=== PATIENT | male | born 1960 | race Caucasian/White ===

== ENCOUNTER 2018-06-21 14:18 | Emergency (ER) | payer MEDICAID, SELFPAY ==
[2018-06-21 14:53] VITALS: BP 133/77; PULSE 80; RESP 16; TEMP 36.5; O2SAT 98
--- NOTE | 2018-06-21 15:02 | PC.NURSE ---
pt speaking about biblical versus. 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
--- NOTE | 2018-06-21 15:43 | ED.PSYCH ---
HPI - Psych General Chief Complaint: Psychiatric Symptoms Stated Complaint: seeing spots Time Seen by Provider: 06/21/18 14:49 Source: patient Mode of arrival: ambulatory Limitations: no limitations History of Present Illness HPI Narrative: Patient is a 57-year-old male brought in by concerned friend after being found in car passed out. She was unable to arouse him initially but he became more awake. A the friend has noticed over the past 2 weeks he has become much more talkative. Unclear if patient has a known diagnosis of bipolar. He is not taking any medications. He says in 2012 he was hospitalized in [place] a by the. He has very bad memories of this. He remembers what happened. He says that he does sleep he thinks maybe he fell asleep in the car he denies any drugs or alcohol. No suicidal or homicidal ideations. He continues to work regularly he showers and is well dressed. MD complaint: altered mental status Review of Systems Review of Systems ROS Unobtainable: All systems reviewed & are unremarkable except as noted in HPI and below Constitutional Denies chills, Denies fever(s), Denies lethargy and Denies weakness Cardiovascular Denies chest pain, Denies syncope, Denies irregular heart rhythm, Denies lightheadedness, Denies palpitations, Denies dyspnea, Denies dyspnea on exertion and Denies orthopnea Respiratory Denies cough, Denies dyspnea, Denies dyspnea on exertion and Denies wheezing Gastrointestinal Gastrointestinal: Denies abdominal pain, Denies change in bowel habits, Denies diarrhea, Denies nausea and Denies vomiting Musculoskeletal Denies back pain, Denies muscle weakness, Denies numbness and Denies tingling Integumentary/Breasts Denies pruritus, Denies erythema, Denies rash and Denies wounds Neurologic Reports behavioral changes, Denies confusion, Denies syncope, Denies numbness, Denies tingling and Denies weakness Psychiatric Denies anxiety, Reports behavioral changes, Denies confusion, Denies depression, Denies auditory hallucinations, Denies hopelessness, Reports mood swings, Denies paranoia and Denies tactile hallucinations Endocrine Denies palpitations Allergic/Immunologic Denies wheezing [facility] Medical History Patient denies medical problems (Acute) Social History Smoking Status: Never smoker Exam Initial Vital Signs Initial Vital Signs: Vital Signs Temperature 97.7 F 06/21/18 14:53 Pulse Rate 80 06/21/18 14:53 Respiratory Rate 16 06/21/18 14:53 Blood Pressure 133/77 06/21/18 14:53 Pulse Oximetry 98 06/21/18 14:53 GENERAL: Well-appearing male standing in room comfortably resting against a counter HEENT: Head atraumatic,EOMI, pupils reactive, face symmetric CARDIOVASCULAR: Regular rate and rhythm without murmurs, rubs or gallops. RESPIRATORY: Breath sounds equal bilaterally, no wheezes rales or rhonchi. ABDOMEN: Soft, nontender. Normoactive bowel sounds all 4 quadrants. No guarding or rebound. EXTREMITIES: Normal range of motion, no clubbing or edema. Neurovascularly intact NEUROLOGICAL: Alert and oriented x4.Normal gait and speech. Cranial nerves II through XII grossly intact. SKIN: Warm, dry, no laceration, no petechiae, no rashes or lesions. Psych Appearance: grossly normal and well kempt Mental Status: mental status grossly normal Speech and Movement: pressured speech Mood: congruent mood and not anxious Affect: normal affect Attitude: cooperative Thought Process: normal and no flight of ideas Thought Content: normal Course Orders Ordered: ED Orders 06/21/18 15:43 EKG-12 Lead Stat 06/21/18 16:18 Basic Metabolic Panel Stat Complete Blood Count AUTO DIFF Stat Vital Signs - 8 hr 06/21/18 14:53 Temperature 97.7 F Pulse Rate 80 Respiratory Rate 16 Blood Pressure 133/77 Pulse Oximetry 98 [facility] - Psych Lab Data Attestation: I reviewed the patient's lab results. Result diagrams: 06/21/18 16:18 06/21/18 16:18 Lab Results 06/21/18 06/21/18 06/21/18 Range/Units 16:18 16:18 Unknown WBC 6.8 (4.5-11.0) X10^3/uL RBC 4.80 (4.5-5.9) X10^6/uL Hgb 14.8 (13.5-17.5) g/dL Hct 42.5 (41-53) % MCV 88.5 (80-100) fL MCH 30.8 (26-34) PG MCHC 34.7 (30-36) % RDW 13.5 (11.6-14.8) % Plt Count 202 (150-400) X10^3/uL Neut % (Auto) 70.9 (50-75) % Lymph % (Auto) 20.2 L (25-40) % [place] % (Auto) 7.4 (3-14) % Eos % (Auto) 0.9 L (2-4) % Baso % (Auto) 0.6 (0-2) % Neut # (Auto) 4800 (4347-9781) /uL Lymph # (Auto) 1400 (0584-4805) /uL [place] # (Auto) 500 (0-900) /uL Eos # (Auto) 100 (0-450) /uL Baso # (Auto) 0 (0-100) /uL Sodium 139 (137-145) mmol/L Potassium 4.2 (3.4-5.1) mmol/L Chloride 106 (98-107) mmol/L Carbon Dioxide 26 (22-32) mmol/L BUN 27 H (9-20) mg/dL Creatinine 0.90 (0.66-1.25) mg/dL Estimated GFR > 60.0 (>60) mL/min BUN/Creatinine Ratio 30.0 H (6-22) Glucose 109 H (70-100) mg/dL Calcium 8.9 (8.4-10.2) mg/dL Urine Opiates Screen Negative (Negative) Ur Oxycodone Screen Negative (Negative) Urine Methadone Screen Negative (Negative) Ur Barbiturates Screen Negative (Negative) U Tricyclic Antidepress Negative (Negative) Ur Phencyclidine Scrn Negative (Negative) Ur Amphetamines Screen Negative (Negative) U Methamphetamines Scrn Negative (Negative) Ur MDMA Scrn (Ecstasy) Negative (Negative) U Benzodiazepines Scrn Negative (Negative) Urine Cocaine Screen Negative (Negative) U Marijuana (THC) Screen Negative (Negative) Ethyl Alcohol < 10 mg/dL Urine Dip Bedside Urine Glucose Negative Bedside Urine Bilirubin - Negative Bedside Urine Ketone - Negative Urine Specific [place] 1.015 Bedside Urine Occult Blood - Negative Bedside Urine pH 8.0 Bedside Urine Protein - Negative Bedside Urine Urobilinogen - Negative Bedside Urine Nitrite - Negative Bedside Urine Leukocytes - Negative Esterase ECG Data Attestation: I personally reviewed and interpreted this ECG as follows: Prior ECG tracings: not available for review Interpretation: Normal sinus rhythm rate [address] changes no T-wave inversion MO interval 159 QRS 90 QTC 391 MDM Narrative Medical decision making narrative: Patient does have pressured speech but not flight of ideas he seems to have a normal thought process. This time he does not meet involuntary criteria. I have called [facility] who set up an urgent appointment for next week. They will call him tomorrow at 6:00 p.m.. Patient request this time he will be sure that he has cell phone service, which [place] a [place]. Discharge Plan Departure Patient Disposition: Home Clinical Impression: Near syncope Discharge Date/Time: 06/21/18 17:00 Interventions: ED Discharge Assessment Last Done: 06/21/18 17:00 Instructions: DI for Syncope in Adults (Fainting), Bipolar Disorder Activity Restrictions/Additional Instructions: *You have been diagnosed with fainting episode, *What to do: [facility] WILL CALL TOMORROW AT 6:00 P.M. PLEASE BE SURE YOU ARE IN CELL PHONE SERVICE AREA TO RECEIVE CALL *Continue to take medications as directed *Follow up with your primary care provider in 2-3 days, [facility] will speak to you about setting up appointment for next week *Return to ER if you should have suicidal thoughts, homicidal thoughts, increased racing thoughts or any new, worsening or concerning symptoms Referrals: [facility] [Outside] [facility] [Outside]
[2018-06-21 16:25] LABS: Add Manual Diff / Slide Review NO; Basophils Absolute Auto 0 /uL (0-100); Basophils Percent Auto 0.6 % (0-2); Eosinophils Absolute Auto 100 /uL (0-450); Eosinophils Percent Auto 0.9 % (2-4); Hematocrit 42.5 % (41-53); Hemoglobin 14.8 g/dL (13.5-17.5); Lymphocytes Absolute Auto 1400 /uL (1100-4500); Lymphocytes Percent Auto 20.2 % (25-40); Mean Corpuscular HGB Conc 34.7 % (30-36); Mean Corpuscular Hemoglobin 30.8 PG (26-34); Mean Corpuscular Volume 88.5 fL (80-100); Monocytes Absolute Auto 500 /uL (0-900); Monocytes Percent Auto 7.4 % (3-14); Neutrophils Absolute Auto 4800 /uL (1500-7000); Neutrophils Percent Auto 70.9 % (50-75); Platelet Count 202 X10^3/uL (150-400); Red Cell Distribution Width 13.5 % (11.6-14.8); White Blood Cell Count 6.8 X10^3/uL (4.5-11.0)
[2018-06-21 16:38] LABS: Blood Urea Nitrogen 27 mg/dL (9-20); Calcium 8.9 mg/dL (8.4-10.2); Carbon Dioxide 26 mmol/L (22-32); Chloride 106 mmol/L (98-107); Estimated Glomerular Filt Rate > 60.0 mL/min (>60); Glucose 109 mg/dL (70-100); HEMOLYSIS < 15 (0-50); Potassium 4.2 mmol/L (3.4-5.1); Sodium 139 mmol/L (137-145)
--- NOTE | 2018-06-21 16:45 | ED_ITS ---
HPI - Psych General Chief Complaint: Psychiatric Symptoms Stated Complaint: seeing spots Time Seen by Provider: 06/21/18 14:49 Source: patient Mode of arrival: ambulatory Limitations: no limitations History of Present Illness HPI Narrative: Patient is a 57-year-old male brought in by concerned friend after being found in car passed out. She was unable to arouse him initially but he became more awake. A the friend has noticed over the past 2 weeks he has become much more talkative. Unclear if patient has a known diagnosis of bipolar. He is not taking any medications. He says in 2012 he was hospitalized in [place] a by the. He has very bad memories of this. He remembers what happened. He says that he does sleep he thinks maybe he fell asleep in the car he denies any drugs or alcohol. No suicidal or homicidal ideations. He continues to work regularly he showers and is well dressed. MD complaint: altered mental status Review of Systems Review of Systems ROS Unobtainable: All systems reviewed & are unremarkable except as noted in HPI and below Constitutional Denies chills, Denies fever(s), Denies lethargy and Denies weakness Cardiovascular Denies chest pain, Denies syncope, Denies irregular heart rhythm, Denies lightheadedness, Denies palpitations, Denies dyspnea, Denies dyspnea on exertion and Denies orthopnea Respiratory Denies cough, Denies dyspnea, Denies dyspnea on exertion and Denies wheezing Gastrointestinal Gastrointestinal: Denies abdominal pain, Denies change in bowel habits, Denies diarrhea, Denies nausea and Denies vomiting Musculoskeletal Denies back pain, Denies muscle weakness, Denies numbness and Denies tingling Integumentary/Breasts Denies pruritus, Denies erythema, Denies rash and Denies wounds Neurologic Reports behavioral changes, Denies confusion, Denies syncope, Denies numbness, Denies tingling and Denies weakness Psychiatric Denies anxiety, Reports behavioral changes, Denies confusion, Denies depression , Denies auditory hallucinations, Denies hopelessness, Reports mood swings, Denies paranoia and Denies tactile hallucinations Endocrine Denies palpitations Allergic/Immunologic Denies wheezing [facility] Medical History Patient denies medical problems (Acute) Social History Smoking Status: Never smoker Exam Initial Vital Signs Initial Vital Signs: Vital Signs Temperature 97.7 F 06/21/18 14:53 Pulse Rate 80 06/21/18 14:53 Respiratory Rate 16 06/21/18 14:53 Blood Pressure 133/77 06/21/18 14:53 Pulse Oximetry 98 06/21/18 14:53 GENERAL: Well-appearing male standing in room comfortably resting against a counter HEENT: Head atraumatic,EOMI, pupils reactive, face symmetric CARDIOVASCULAR: Regular rate and rhythm without murmurs, rubs or gallops. RESPIRATORY: Breath sounds equal bilaterally, no wheezes rales or rhonchi. ABDOMEN: Soft, nontender. Normoactive bowel sounds all 4 quadrants. No guarding or rebound. EXTREMITIES: Normal range of motion, no clubbing or edema. Neurovascularly intact NEUROLOGICAL: Alert and oriented x4.Normal gait and speech. Cranial nerves II through XII grossly intact. SKIN: Warm, dry, no laceration, no petechiae, no rashes or lesions. Psych Appearance: grossly normal and well kempt Mental Status: mental status grossly normal Speech and Movement: pressured speech Mood: congruent mood and not anxious Affect: normal affect Attitude: cooperative Thought Process: normal and no flight of ideas Thought Content: normal Course Orders Ordered: ED Orders 06/21/18 15:43 EKG-12 Lead Stat 06/21/18 16:18 Basic Metabolic Panel Stat Complete Blood Count AUTO DIFF Stat Vital Signs - 8 hr 06/21/18 14:53 Temperature 97.7 F Pulse Rate 80 Respiratory Rate 16 Blood Pressure 133/77 Pulse Oximetry 98 [facility] - Psych Lab Data Attestation: I reviewed the patient's lab results. Result diagrams: 06/21/18 16:18 06/21/18 16:18 Lab Results 06/21/18 06/21/18 06/21/18 Range/Units 16:18 16:18 Unknown WBC 6.8 (4.5-11.0) X10^3/uL RBC 4.80 (4.5-5.9) X10^6/uL Hgb 14.8 (13.5-17.5) g/dL Hct 42.5 (41-53) % MCV 88.5 (80-100) fL MCH 30.8 (26-34) PG MCHC 34.7 (30-36) % RDW 13.5 (11.6-14.8) % Plt Count 202 (150-400) X10^3/uL Neut % (Auto) 70.9 (50-75) % Lymph % (Auto) 20.2 L (25-40) % [place] % (Auto) 7.4 (3-14) % Eos % (Auto) 0.9 L (2-4) % Baso % (Auto) 0.6 (0-2) % Neut # (Auto) 4800 (3982-2037) /uL Lymph # (Auto) 1400 (9706-0111) /uL [place] # (Auto) 500 (0-900) /uL Eos # (Auto) 100 (0-450) /uL Baso # (Auto) 0 (0-100) /uL Sodium 139 (137-145) mmol/L Potassium 4.2 (3.4-5.1) mmol/L Chloride 106 (98-107) mmol/L Carbon Dioxide 26 (22-32) mmol/L BUN 27 H (9-20) mg/dL Creatinine 0.90 (0.66-1.25) mg/dL Estimated GFR > 60.0 (>60) mL/min BUN/Creatinine Ratio 30.0 H (6-22) Glucose 109 H (70-100) mg/dL Calcium 8.9 (8.4-10.2) mg/dL Urine Opiates Screen Negative (Negative) Ur Oxycodone Screen Negative (Negative) Urine Methadone Screen Negative (Negative) Ur Barbiturates Screen Negative (Negative) U Tricyclic Antidepress Negative (Negative) Ur Phencyclidine Scrn Negative (Negative) Ur Amphetamines Screen Negative (Negative) U Methamphetamines Scrn Negative (Negative) Ur MDMA Scrn (Ecstasy) Negative (Negative) U Benzodiazepines Scrn Negative (Negative) Urine Cocaine Screen Negative (Negative) U Marijuana (THC) Screen Negative (Negative) Ethyl Alcohol < 10 mg/dL Urine Dip Bedside Urine Glucose Negative Bedside Urine Bilirubin - Negative Bedside Urine Ketone - Negative Urine Specific [place] 1.015 Bedside Urine Occult Blood - Negative Bedside Urine pH 8.0 Bedside Urine Protein - Negative Bedside Urine Urobilinogen - Negative Bedside Urine Nitrite - Negative Bedside Urine Leukocytes - Negative Esterase ECG Data Attestation: I personally reviewed and interpreted this ECG as follows: Prior ECG tracings: not available for review Interpretation: Normal sinus rhythm rate [address] changes no T-wave inversion OR interval 159 QRS 90 QTC 391 MDM Narrative Medical decision making narrative: Patient does have pressured speech but not flight of ideas he seems to have a normal thought process. This time he does not meet involuntary criteria. I have called [facility] who set up an urgent appointment for next week. They will call him tomorrow at 6:00 p.m.. Patient request this time he will be sure that he has cell phone service, which is sometimes difficult to find a [place]. Discharge Plan Departure Patient Disposition: Home Clinical Impression: Near syncope Discharge Date/Time: 06/21/18 17:00 Interventions: ED Discharge Assessment Last Done: 06/21/18 17:00 Instructions: DI for Syncope in Adults (Fainting), Bipolar Disorder Activity Restrictions/Additional Instructions: *You have been diagnosed with fainting episode, *What to do: [facility] WILL CALL TOMORROW AT 6:00 P.M. PLEASE BE SURE YOU ARE IN CELL PHONE SERVICE AREA TO RECEIVE CALL *Continue to take medications as directed *Follow up with your primary care provider in 2-3 days, [facility] will speak to you about setting up appointment for next week *Return to ER if you should have suicidal thoughts, homicidal thoughts, increased racing thoughts or any new, worsening or concerning symptoms Referrals: [facility] [place] [Outside] [facility] [Outside]
[2018-06-21 16:54] VITALS: BP 133/81; PULSE 73; RESP 19; O2SAT 100
[2018-06-21 17:06] LABS: Ethanol (ETOH) < 10 mg/dL
[2018-06-21 17:44] LABS: Urine Amphetamines Negative (Negative); Urine Barbiturates Negative (Negative); Urine Benzodiazepines Negative (Negative); Urine Cocaine Negative (Negative); Urine MDMA Negative (Negative); Urine Methadone Negative (Negative); Urine Methamphetamines Negative (Negative); Urine Morphine/Opi cutoff 2000 Negative (Negative); Urine Oxycodone Negative (Negative); Urine Phencyclidine Negative (Negative); Urine THC Negative (Negative); Urine Tricyclic Antidepressant Negative (Negative)
== END 2018-06-21 17:00 | disposition home or self-care (01) ==
PROVIDERS: Emergency Provider Emergency Medicine
DX: R55 Syncope and collapse (principal)
CPT/HCPCS: 80048; 80305; 80320; 81003; 85025; 93005; 99282; 99283

== ENCOUNTER 2018-07-03 18:08 | Emergency (ER) | payer MEDICAID, SELFPAY ==
[2018-07-03 18:17] VITALS: BP 145/85; PULSE 95; RESP 20; TEMP 36.9; O2SAT 99; BMI 24.7
--- NOTE | 2018-07-03 20:01 | ED_ITS ---
HPI - Extremity Injury (Lower) General Chief Complaint: Extremity Injury, Lower Stated Complaint: pressure in legs, pressure in head, whoozy Time Seen by Provider: 07/03/18 20:00 Source: patient Mode of arrival: ambulatory Limitations: no limitations History of Present Illness HPI Narrative: The patient arrives with complaints of lower extremity edema. He has tightness in the lower extremities up to his knees. Apparently he has had edema in his lower extremities for years, but worse now. He has no obvious associated chest pain, dyspnea or orthopnea. He has no obvious cardiac history. He has no recent illness with fever or chills. History taking was difficult. When asked about chest pain, he tell me he had a broken heart for 20 years ago. When asked about difficulty breathing, he previously had difficulty breathing but his daughter consult him out of the sensation. Regarding the lower extremity edema he treats with verbal topical solutions, as well as herbal intake. He is on no prescribed medications, and has stated repeatedly he wants none. He is reliant only on herbal medicinal compounds. Interestingly he only uses 2 compounds, for anything. He apparently had a recent pneumonia that he had cured with the same compounds. Conversation with the patient was often tangential, he repeatedly demonstrated flight of ideas. Other than the leg edema, he is in no apparent distress. Related Data Allergies Allergy/AdvReac Type Severity Reaction Status Date / Time No Known Drug Allergies Allergy Verified 07/03/18 18:20 Review of Systems Review of Systems ROS Unobtainable: All systems reviewed & are unremarkable except as noted in HPI and below Constitutional Denies chills, Denies fever(s), Denies lethargy and Denies weakness Cardiovascular Denies chest pain, Denies irregular heart rhythm, Denies lightheadedness, Denies palpitations, Denies dyspnea, Denies dyspnea on exertion and Denies orthopnea Respiratory Denies cough, Denies dyspnea, Denies dyspnea on exertion and Denies wheezing Gastrointestinal Gastrointestinal: Denies abdominal pain, Denies change in bowel habits, Denies diarrhea, Denies nausea and Denies vomiting Musculoskeletal Denies back pain, Denies muscle weakness, Denies numbness, Denies tingling and Reports other Integumentary/Breasts Denies pruritus, Reports erythema (Mild erythema to both lower extremities associated with stasis dermatitis and lower extremities.), Denies rash and Denies wounds Neurologic Denies confusion, Denies numbness, Denies tingling and Denies weakness Psychiatric Denies anxiety, Denies confusion, Denies depression, Denies paranoia, Denies hallucinations, Denies homicidal ideation, Denies suicidal ideation and Reports other (He is oriented to person and place. He demonstrates flight of ideas. He openly admits that he has bipolar disorder. He is not sleeping well.) Endocrine Denies palpitations Hematologic/Lymphatic Denies easy bruising and Denies lymphadenopathy Allergic/Immunologic Denies wheezing PFSH Medical History Bipolar 1 disorder with moderate jeffrey (Acute) Edema (Acute) No chronic diseases present (Acute) Patient denies medical problems (Acute) Social History Smoking Status: Never smoker Exam Initial Vital Signs Initial Vital Signs: Vital Signs Temperature 98.5 F 07/03/18 18:17 Pulse Rate 95 H 07/03/18 18:17 Respiratory Rate 20 07/03/18 18:17 Blood Pressure 145/85 H 07/03/18 18:17 Pulse Oximetry 99 07/03/18 18:17 Const General: cooperative and well developed Nutritional Appearance: well nourished Orientation: alert, awake, oriented x3 and not confused [facility] Head: normocephalic and atraumatic Nose: external nose normal Face and sinus: sinuses nontender, no sinus tenderness and No dry mucous membranes Mouth: oral mucosae normal and moist mucous membranes Throat: posterior oropharynx normal, tonsils normal and uvula midline Eyes General: appearance normal, both eyes and all related structures Eyelids: eyelids normal Conjunctivae: conjunctivae normal Sclera: sclerae normal Pupils: PERRL EOM: EOM intact bilaterally Neck Thyroid: thyroid normal Chest Chest: normal inspection of the chest Resp Effort & Inspection: normal respiratory effort Cardio Rate: regular rate Rhythm: regular rhythm Heart Sounds: no click, no gallops, no murmurs and no rubs Pulses: normal peripheral pulses GI Inspection: non-distended Palpation: soft, no hepatosplenomegaly, No guarding, No pulsatile mass and No tender Auscultation: normal bowel sounds Skin General: no rashes or lesions noted, No jaundice and No petechiae Neuro General: alert, oriented x3, gait normal and no focal motor deficits Speech: speech normal Extrem General: full ROM, no pedal edema, no calf tenderness and pedal edema ( Bilateral lower extremity edema, 4+ bilaterally. Stasis dermatitis changes bilaterally. Normal peripheral pulses.) Psych Appearance: grossly normal and well kempt Speech and Movement: not agitated, speech clear and restless Mood: euphoric mood and not paranoid Affect: indifferent Attitude: cooperative Thought Process: confabulating, flight of ideas and tangential Thought Content: no homicidality, no obsessions, no phobias and suicidality Course Orders Ordered: ED Orders 07/03/18 20:31 Complete Blood Count AUTO DIFF Stat Comprehensive Metabolic Panel Stat Troponin & CK Cardiac Panel Stat Vital Signs - 8 hr 07/03/18 18:17 Temperature 98.5 F Pulse Rate 95 H Respiratory Rate 20 Blood Pressure 145/85 H Pulse Oximetry 99 MDM - Extremity Injury (Lower) Lab Data Attestation: I reviewed the patient's lab results. Result diagrams: 07/03/18 20:31 07/03/18 20:31 Lab Results 07/03/18 07/03/18 Range/Units 20:31 20:31 WBC 9.5 (4.5-11.0) X10^3/uL RBC 4.66 (4.5-5.9) X10^6/uL Hgb 14.2 (13.5-17.5) g/dL Hct 41.9 (41-53) % MCV 89.9 (80-100) fL MCH 30.6 (26-34) PG MCHC 34.0 (30-36) % RDW 13.7 (11.6-14.8) % Plt Count 214 (150-400) X10^3/uL Neut % (Auto) 76.0 H (50-75) % Lymph % (Auto) 15.6 L (25-40) % [place] % (Auto) 7.0 (3-14) % Eos % (Auto) 0.8 L (2-4) % Baso % (Auto) 0.6 (0-2) % Neut # (Auto) 7200 H (0565-3897) /uL Lymph # (Auto) 1500 (5659-4642) /uL [place] # (Auto) 700 (0-900) /uL Eos # (Auto) 100 (0-450) /uL Baso # (Auto) 100 (0-100) /uL Sodium 140 (137-145) mmol/L Potassium 3.9 (3.4-5.1) mmol/L Chloride 105 (98-107) mmol/L Carbon Dioxide 25 (22-32) mmol/L BUN 31 H (9-20) mg/dL Creatinine 0.90 (0.66-1.25) mg/dL Estimated GFR > 60.0 (>60) mL/min BUN/Creatinine Ratio 34.4 H (6-22) Glucose 103 H (70-100) mg/dL Calcium 8.8 (8.4-10.2) mg/dL Total Bilirubin 0.5 (0.2-1.3) mg/dL AST 35 (17-59) IU/L ALT 50 (21-72) IU/L Alkaline Phosphatase 57 (38-126) U/L Total Creatine Kinase 318 H (55-170) U/L CK-MB (CK-2) 5.27 H (<2.37) ng/mL CK-MB (CK-2) Rel Index 1.7 (1.5-5.0) % Troponin I < 0.012 (0.01-0.034) ng/mL Total Protein 6.3 (6.3-8.2) g/dL Albumin 3.6 (3.5-5.0) g/dL Globulin 2.7 (1.7-4.1) g/dL Albumin/Globulin Ratio 1.3 (1.0-2.8) ECG Data Attestation: I personally reviewed and interpreted this ECG as follows: (Normal sinus rhythm. No ectopy. Normal intervals. No ST or T-wave changes.) MDM Narrative Medical decision making narrative: After the ablation I explained to the patient that the swelling could be associated with his heart, liver, or blood vessels. He has no chronic medical problems, is asymptomatic to wall other than the edema. I suspect the more benign peripheral edema. Labs and EKG were ordered. The patient determined he was not ill, and decided to leave on his own. He was with a friend. He left before labs were completed. Other labs appear in this document, there is no opportunity to make him aware of the lab values. There is no opportunity to suggest a follow-up with a local doctor, he does not apparently have a doctor at this time, however. 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 This would help keep the swelling down. Elevating your legs when he rest also help keep the swelling down. There are prescribed medications that can help the swelling also, if you choose. Return here if needed.
[2018-07-03 20:39] LABS: Add Manual Diff / Slide Review NO; Basophils Absolute Auto 100 /uL (0-100); Basophils Percent Auto 0.6 % (0-2); Eosinophils Absolute Auto 100 /uL (0-450); Eosinophils Percent Auto 0.8 % (2-4); Hematocrit 41.9 % (41-53); Hemoglobin 14.2 g/dL (13.5-17.5); Lymphocytes Absolute Auto 1500 /uL (1100-4500); Lymphocytes Percent Auto 15.6 % (25-40); Mean Corpuscular Hemoglobin 30.6 PG (26-34); Mean Corpuscular Volume 89.9 fL (80-100); Monocytes Absolute Auto 700 /uL (0-900); Neutrophils Absolute Auto 7200 /uL (1500-7000); Platelet Count 214 X10^3/uL (150-400); Red Blood Cell Count 4.66 X10^6/uL (4.5-5.9); Red Cell Distribution Width 13.7 % (11.6-14.8); White Blood Cell Count 9.5 X10^3/uL (4.5-11.0)
--- NOTE | 2018-07-03 20:47 | PC.NURSE ---
ED was contacted by walk in clinic r/t need to rule out an PR, pt had presented to them with c/o chest pain and bilat lower ext swelling. On exam, pt presents with rapid, tangential speech, difficult to redirect, reports history of bipolar. He denies chest pain, states earlier today I think it was my broken heart healing from when my girlfriend left me, bilateral lower ext +3 pitting edema with bounding pedal pulses, it is not clear from pt description the onset or duration of this. He denies soa/nausea/vomiting/trauma/and pain/diarrhea/fever/cough or other sx. He is oriented x3 and denies suicidal or homicidal ideation.
[2018-07-03 20:50] LABS: Alanine Aminotransferase 50 IU/L (21-72); Albumin 3.6 g/dL (3.5-5.0); Albumin Globulin Ratio 1.3 (1.0-2.8); Alkaline Phosphatase 57 U/L (38-126); Aspartate Aminotransferase 35 IU/L (17-59); BUN Creatinine Ratio 34.4 (6-22); Bilirubin Total 0.5 mg/dL (0.2-1.3); Blood Urea Nitrogen 31 mg/dL (9-20); Calcium 8.8 mg/dL (8.4-10.2); Carbon Dioxide 25 mmol/L (22-32); Chloride 105 mmol/L (98-107); Creatine Kinase 318 U/L (55-170); Estimated Glomerular Filt Rate > 60.0 mL/min (>60); Globulin 2.7 g/dL (1.7-4.1); Glucose 103 mg/dL (70-100); HEMOLYSIS < 15 (0-50); Potassium 3.9 mmol/L (3.4-5.1); Sodium 140 mmol/L (137-145); Total Protein 6.3 g/dL (6.3-8.2)
[2018-07-03 21:07] LABS: Troponin I < 0.012 ng/mL (0.01-0.034)
[2018-07-03 21:09] LABS: CKMB % Relative Index 1.7 % (1.5-5.0); Creatine Kinase MB 5.27 ng/mL (<2.37)
== END 2018-07-03 20:58 | disposition home or self-care (01) ==
PROVIDERS: Emergency Provider Emergency Medicine
DX: R60.0 Localized edema (principal)
CPT/HCPCS: 80053; 82550; 82553; 84484; 85025; 93005; 93010; 99282; 99284

== ENCOUNTER 2018-07-08 10:23 | Emergency (ER) | payer MEDICAID, SELFPAY ==
[2018-07-08 10:33] VITALS: BP 147/65; PULSE 72; RESP 16; TEMP 36.7; O2SAT 99
[2018-07-08 10:58] VITALS: BP 137/76; PULSE 72; RESP 14; O2SAT 99
--- NOTE | 2018-07-08 11:04 | DI.US.S_ITS ---
PROCEDURE: US PERIPH VENOUS LOW EXTREM BI INDICATIONS: swelling bilateral lower extremity TECHNIQUE: Real-time imaging, as well as color and pulse Doppler interrogation, were performed of the deep veins of both legs from the inguinal ligament to the popliteal fossa. COMPARISON: None. FINDINGS: The deep veins are normally compressible, and free of intraluminal thrombus. Color and pulse Doppler demonstrate normal phasic intravascular flow. There is normal augmentation response to distal compression maneuver. IMPRESSION: 1. No evidence of deep venous thrombosis in the right or left lower extremity. Dictated by: Guillaume Belle M.D. on 07/08/2018 at 12:01 Approved by: Guillaume Belle M.D. on 07/08/2018 at 12:02
--- NOTE | 2018-07-08 11:04 | DI.RAD.S_ITS ---
PROCEDURE: XR CHEST 1V INDICATIONS: swelling lower extremities TECHNIQUE: One view of the chest was acquired. COMPARISON: None. FINDINGS: Surgical changes and devices: None. Lungs and pleura: Mildly prominent infrahilar interstitial markings are present without focal consolidation, effusion, or pneumothorax. Mediastinum: Mediastinal contours appear normal. Heart size is normal. Bones and chest wall: No suspicious bony lesions. Overlying soft tissues appear unremarkable. IMPRESSION: Probable chronic interstitial changes within the infrahilar regions. Superimposed atypical pneumonia is felt to be less likely. Please correlate clinically. Dictated by: Misael Edmonds M.D. on 07/08/2018 at 10:27 Approved by: Misael Edmonds M.D. on 07/08/2018 at 10:28
--- NOTE | 2018-07-08 11:09 | ED.EXTPRO ---
HPI - Extremity Problem <Owen London MD - Last Filed: 07/27/18 02:26> General Chief complaint: Extremity Problem,Nontraumatic Stated complaint: poss left leg clot Time Seen by Provider: 07/08/18 10:47 Source: patient and old records reviewed Mode of arrival: ambulatory Limitations: no limitations History of Present Illness HPI Narrative: Related Data Home Medications Medication Instructions Recorded Confirmed No Known Home Medications 07/08/18 07/08/18 Allergies Allergy/AdvReac Type Severity Reaction Status Date / Time No Known Drug Allergies Allergy Verified 07/03/18 18:20 <Giovanna Traylor DO - Last Filed: 07/08/18 12:27> General Source: patient Mode of arrival: ambulatory Limitations: no limitations History of Present Illness HPI Narrative: This is a 57-year-old male who comes to the emergency department with complaint of swelling in his lower extremities. Patient states has been going on for quite a while states that he has been checked out a couple times but is concerned about blood clots. He has some pain which he complains of in the dorsum of the foot just behind the toes. States he does have some mild discomfort with palpation of the legs. Patient states he has a prior family history. Patient states he has swelling in both lower extremities but worse on the left. Does not sound to be like an acute change but more of a slow change. Patient is denying any chest, no shortness of breath, no syncope, no nausea no vomiting no diarrhea, constipation or other urinary issues. Patient has sort of a tangential thought pattern, he continually refers to relationship with a woman from 2007. He did show me her picture as well as some text messages between them. He does have a history of bipolar. He was accompanied here by his brother. Patient lives on [facility]. Patient does not have any suicidal, homicidal ideation or intent. Review of Systems <Owne London MD - Last Filed: 07/27/18 02:26> Review of Systems ROS Unobtainable: All systems reviewed & are unremarkable except as noted in HPI and below Constitutional Denies chills, Denies fatigue, Denies fever(s) and Denies lethargy Cardiovascular Denies chest pain, Denies irregular heart rhythm, Reports leg edema, Denies lightheadedness, Denies palpitations, Denies dyspnea, Denies dyspnea on exertion and Denies orthopnea Respiratory Denies chest congestion, Denies cough, Denies hemoptysis, Denies excessive phlegm production, Denies dyspnea, Denies dyspnea on exertion and Denies wheezing Gastrointestinal Gastrointestinal: Denies abdominal pain, Denies change in bowel habits, Denies diarrhea, Denies nausea and Denies vomiting Genitourinary Denies hematuria, Denies flank pain and Denies urinary urgency Musculoskeletal Reports other (pain in feet) Endocrine Denies fatigue and Denies palpitations Allergic/Immunologic Denies wheezing <Giovanna Traylor DO - Last Filed: 07/08/18 12:27> Review of Systems ROS Unobtainable: All systems reviewed & are unremarkable except as noted in HPI and below Constitutional Denies chills, Denies fever(s), Denies lethargy and Denies weakness Cardiovascular Denies chest pain, Denies chest pain at rest, Denies chest pain with activity, Denies syncope, Denies irregular heart rhythm, Reports leg edema, Denies lightheadedness, Denies palpitations, Denies dyspnea, Denies dyspnea on exertion and Denies orthopnea Respiratory Denies change in phlegm color, Denies chest congestion, Denies cough, Denies pain on inspiration, Denies pain with cough, Denies dyspnea and Denies dyspnea on exertion Gastrointestinal Gastrointestinal: Denies abdominal pain, Denies change in bowel habits, Denies diarrhea, Denies nausea and Denies vomiting Genitourinary Denies hematuria, Denies flank pain and Denies urinary urgency Musculoskeletal Reports other (pain in feet) Neurologic Denies syncope and Denies weakness Psychiatric Denies homicidal ideation and Denies suicidal ideation Endocrine Denies palpitations PFSH <Owen London MD - Last Filed: 07/27/18 02:26> Medical History Bipolar 1 disorder with moderate jeffrey (Acute) Edema (Acute) No chronic diseases present (Acute) Patient denies medical problems (Acute) Social History Smoking Status: Never smoker Exam <Owen London MD - Last Filed: 07/27/18 02:26> Narrative Exam Narrative: Initial Vital Signs Initial Vital Signs: Vital Signs Temperature 98.1 F 07/08/18 10:33 Pulse Rate 72 07/08/18 10:33 Respiratory Rate 16 07/08/18 10:33 Blood Pressure 147/65 H 07/08/18 10:33 Pulse Oximetry 99 07/08/18 10:33 <Giovanna Traylor DO - Last Filed: 07/08/18 12:27> Narrative Exam Narrative: GENERAL: Alert and oriented x three, Male in mild distress. HEENT: Head normocephalic, atraumatic, EOMI, pupils reactive, face symmetric, moist mucous membranes NECK: Supple, full range of motion CARDIOVASCULAR: Regular rate and rhythm without murmurs, rubs or gallops. RESPIRATORY: Breath sounds equal bilaterally, no wheezes rales or rhonchi. ABDOMEN: Soft, nontender. Normoactive bowel sounds all 4 quadrants. No guarding or rebound, rigidity, no mass : No CVA tenderness EXTREMITIES: Normal range of motion, no clubbing. Patient has bilateral lower extremity edema 1+. Very mild increase in left versus right. There is no skin breakdown there is some very mild erythema / hyperpigmentation. Patient has palpable pulses bilaterally.. Neurovascularly intact NEUROLOGICAL: Cranial nerves II through XII grossly intact. Moving all extremities SKIN: Warm, dry, no petechiae, no rashes or lesions. Initial Vital Signs Initial Vital Signs: Vital Signs Temperature 98.1 F 07/08/18 10:33 Pulse Rate 72 07/08/18 10:33 Respiratory Rate 16 07/08/18 10:33 Blood Pressure 147/65 H 07/08/18 10:33 Pulse Oximetry 99 07/08/18 10:33 Course <Owen London MD - Last Filed: 07/27/18 02:26> Orders Ordered: ED Orders 07/08/18 10:45 Urine Drug Screen, Rapid Stat 07/08/18 11:04 US periph venous low extrem bi Stat XR chest 1V Stat EKG-12 Lead Stat 07/08/18 11:19 B Type Natriuretic Peptide Stat Complete Blood Count AUTO DIFF Stat Comprehensive Metabolic Panel Stat Lipase Stat Troponin & CK Cardiac Panel Stat Vital Signs - 8 hr 07/08/18 10:33 07/08/18 10:58 07/08/18 11:23 Temperature 98.1 F Pulse Rate 72 72 Pulse Rate [Bilateral Dorsalis Pedis] 74 Respiratory Rate 16 14 Blood Pressure 147/65 H Blood Pressure [Left Arm] 137/76 Pulse Oximetry 99 99 07/08/18 12:09 Temperature Pulse Rate 78 Pulse Rate [Bilateral Dorsalis Pedis] Respiratory Rate 18 Blood Pressure Blood Pressure [Left Arm] 142/88 H Pulse Oximetry 98 <Giovanna Traylor DO - Last Filed: 07/08/18 12:27> Orders Ordered: ED Orders 07/08/18 10:45 Urine Drug Screen, Rapid Stat 07/08/18 11:04 US periph venous low extrem bi Stat XR chest 1V Stat EKG-12 Lead Stat 07/08/18 11:19 B Type Natriuretic Peptide Stat Complete Blood Count AUTO DIFF Stat Comprehensive Metabolic Panel Stat Lipase Stat Troponin & CK Cardiac Panel Stat Vital Signs - 8 hr 07/08/18 10:33 07/08/18 10:58 07/08/18 11:23 Temperature 98.1 F Pulse Rate 72 72 Pulse Rate [Bilateral Dorsalis Pedis] 74 Respiratory Rate 16 14 Blood Pressure 147/65 H Blood Pressure [Left Arm] 137/76 Pulse Oximetry 99 99 07/08/18 12:09 Temperature Pulse Rate 78 Pulse Rate [Bilateral Dorsalis Pedis] Respiratory Rate 18 Blood Pressure Blood Pressure [Left Arm] 142/88 H Pulse Oximetry 98 MDM - Extremity (Nontraumatic) <Owen London MD - Last Filed: 07/27/18 02:26> Lab Data Result diagrams: 07/08/18 11:19 07/08/18 11:19 Lab Results 07/08/18 07/08/18 07/08/18 Range/Units 10:45 11:19 11:19 WBC 6.7 (4.5-11.0) X10^3/uL RBC 4.62 (4.5-5.9) X10^6/uL Hgb 14.1 (13.5-17.5) g/dL Hct 41.9 (41-53) % MCV 90.8 (80-100) fL MCH 30.4 (26-34) PG MCHC 33.5 (30-36) % RDW 13.2 (11.6-14.8) % Plt Count 198 (150-400) X10^3/uL Neut % (Auto) 74.6 (50-75) % Lymph % (Auto) 18.8 L (25-40) % [place] % (Auto) 5.4 (3-14) % Eos % (Auto) 0.6 L (2-4) % Baso % (Auto) 0.6 (0-2) % Neut # (Auto) 5000 (8837-2088) /uL Lymph # (Auto) 1300 (4811-7630) /uL [place] # (Auto) 400 (0-900) /uL Eos # (Auto) 0 (0-450) /uL Baso # (Auto) 0 (0-100) /uL Sodium 138 (137-145) mmol/L Potassium 3.8 (3.4-5.1) mmol/L Chloride 103 (98-107) mmol/L Carbon Dioxide 28 (22-32) mmol/L BUN 22 H (9-20) mg/dL Creatinine 0.90 (0.66-1.25) mg/dL Estimated GFR > 60.0 (>60) mL/min BUN/Creatinine Ratio 24.4 H (6-22) Glucose 116 H (70-100) mg/dL Calcium 8.8 (8.4-10.2) mg/dL Total Bilirubin 0.8 (0.2-1.3) mg/dL AST 30 (17-59) IU/L ALT 46 (21-72) IU/L Alkaline Phosphatase 58 (38-126) U/L Total Creatine Kinase 188 H (55-170) U/L CK-MB (CK-2) 3.69 H (<2.37) ng/mL CK-MB (CK-2) Rel Index 2.0 (1.5-5.0) % Troponin I < 0.012 (0.01-0.034) ng/mL B-Natriuretic Peptide < 100 (<100) Total Protein 6.5 (6.3-8.2) g/dL Albumin 3.7 (3.5-5.0) g/dL Globulin 2.8 (1.7-4.1) g/dL Albumin/Globulin Ratio 1.3 (1.0-2.8) Lipase 81 (23-300) U/L Urine Opiates Screen Negative (Negative) Ur Oxycodone Screen Negative (Negative) Urine Methadone Screen Negative (Negative) Ur Barbiturates Screen Negative (Negative) U Tricyclic Antidepress Negative (Negative) Ur Phencyclidine Scrn Negative (Negative) Ur Amphetamines Screen Negative (Negative) U Methamphetamines Scrn Negative (Negative) Ur MDMA Scrn (Ecstasy) Negative (Negative) U Benzodiazepines Scrn Negative (Negative) Urine Cocaine Screen Negative (Negative) U Marijuana (THC) Screen Negative (Negative) Urine Dip Bedside Urine Glucose Negative Bedside Urine Bilirubin - Negative Bedside Urine Ketone - Negative Urine Specific [place] 1.015 Bedside Urine Occult Blood - Negative Bedside Urine pH 7.0 Bedside Urine Protein - Negative Bedside Urine Urobilinogen - Negative Bedside Urine Nitrite - Negative Bedside Urine Leukocytes - Negative Esterase <Giovanna Traylor, DO - Last Filed: 07/08/18 12:27> Lab Data Attestation: I reviewed the patient's lab results. Lab Results 07/08/18 07/08/18 07/08/18 Range/Units 10:45 11:19 11:19 WBC 6.7 (4.5-11.0) X10^3/uL RBC 4.62 (4.5-5.9) X10^6/uL Hgb 14.1 (13.5-17.5) g/dL Hct 41.9 (41-53) % MCV 90.8 (80-100) fL MCH 30.4 (26-34) PG MCHC 33.5 (30-36) % RDW 13.2 (11.6-14.8) % Plt Count 198 (150-400) X10^3/uL Neut % (Auto) 74.6 (50-75) % Lymph % (Auto) 18.8 L (25-40) % [place] % (Auto) 5.4 (3-14) % Eos % (Auto) 0.6 L (2-4) % Baso % (Auto) 0.6 (0-2) % Neut # (Auto) 5000 (5467-2347) /uL Lymph # (Auto) 1300 (1815-9962) /uL [place] # (Auto) 400 (0-900) /uL Eos # (Auto) 0 (0-450) /uL Baso # (Auto) 0 (0-100) /uL Sodium 138 (137-145) mmol/L Potassium 3.8 (3.4-5.1) mmol/L Chloride 103 (98-107) mmol/L Carbon Dioxide 28 (22-32) mmol/L BUN 22 H (9-20) mg/dL Creatinine 0.90 (0.66-1.25) mg/dL Estimated GFR > 60.0 (>60) mL/min BUN/Creatinine Ratio 24.4 H (6-22) Glucose 116 H (70-100) mg/dL Calcium 8.8 (8.4-10.2) mg/dL Total Bilirubin 0.8 (0.2-1.3) mg/dL AST 30 (17-59) IU/L ALT 46 (21-72) IU/L Alkaline Phosphatase 58 (38-126) U/L Total Creatine Kinase 188 H (55-170) U/L CK-MB (CK-2) 3.69 H (<2.37) ng/mL CK-MB (CK-2) Rel Index 2.0 (1.5-5.0) % Troponin I < 0.012 (0.01-0.034) ng/mL B-Natriuretic Peptide < 100 (<100) Total Protein 6.5 (6.3-8.2) g/dL Albumin 3.7 (3.5-5.0) g/dL Globulin 2.8 (1.7-4.1) g/dL Albumin/Globulin Ratio 1.3 (1.0-2.8) Lipase 81 (23-300) U/L Urine Opiates Screen Negative (Negative) Ur Oxycodone Screen Negative (Negative) Urine Methadone Screen Negative (Negative) Ur Barbiturates Screen Negative (Negative) U Tricyclic Antidepress Negative (Negative) Ur Phencyclidine Scrn Negative (Negative) Ur Amphetamines Screen Negative (Negative) U Methamphetamines Scrn Negative (Negative) Ur MDMA Scrn (Ecstasy) Negative (Negative) U Benzodiazepines Scrn Negative (Negative) Urine Cocaine Screen Negative (Negative) U Marijuana (THC) Screen Negative (Negative) Urine Dip Bedside Urine Glucose Negative Bedside Urine Bilirubin - Negative Bedside Urine Ketone - Negative Urine Specific [place] 1.015 Bedside Urine Occult Blood - Negative Bedside Urine pH 7.0 Bedside Urine Protein - Negative Bedside Urine Urobilinogen - Negative Bedside Urine Nitrite - Negative Bedside Urine Leukocytes - Negative Esterase ECG Data Attestation EKG: I personally reviewed and interpreted this ECG as follows: Prior ECG tracings: available for review Interpretation: Sinus rhythm with a rate of 71 a CO interval of 161 a QRS of 92 and QTC of 410. No ST elevation or depression. Patient has a prior EKG that appears similar from 06/22/2018. MDM Narrative Medical decision making narrative: Patient was seen here on the but left prior to having any of his lab work back today had EKG, chest x-ray as well as lab work which did not show any major changes. Possibly some interstitial disease. Patient's ultrasound does not show any blood clot in his lower extremities. We did discuss compression stockings which he states he is not a big fan but would look into. We also discussed that he could potentially be on a diuretic but I would prescribed at this time as he does not have any kind of follow-up with primary care. Was given some options for primary care. Patient also requested to talk with the movement assembly final inspector. He is denying any suicidal or homicidal ideation or intent. We did contact the movement assembly final inspector but he wanted to walk about so he is ambulating in the waiting area of the emergency department but states that he might leave. We did let him know that the movement assembly final inspector is coming. He seems to be in good spirits at this time and is headed to the cafeteria to get lunch. Discharge Plan Departure Patient Disposition: Home Clinical Impression: Bilateral edema of lower extremity Discharge Date/Time: 07/08/18 12:24 Interventions: ED Discharge Assessment Last Done: 07/08/18 12:18 Instructions: DI for Peripheral Edema -- Bilateral Activity Restrictions/Additional Instructions: Follow-up with your physician for recheck and discussion about whether a diuretic would be helpful for the swelling in your lower extremities I would recommend wearing compression socks or hose regularly to help with swelling in your lower extremities. These can be obtained [id number] at pharmacies or medical supplies doors. Return to the emergency department for fevers, signs of infection in your lower extremities, breakdown of the skin, rapidly worsening pain, new weakness, numbness, chest pain, shortness of breath or other new or concerning symptoms. Prescriptions: No Action No Known Home Medications RF: 0 Referrals: [facility] [Provider Group] [facility] [Provider Group] [facility] [Provider Group] [facility] [Provider Group]
--- NOTE | 2018-07-08 11:14 | ED_ITS ---
HPI - Extremity Problem <Owen London MD - Last Filed: 07/27/18 02:26> General Chief complaint: Extremity Problem,Nontraumatic Stated complaint: poss left leg clot Time Seen by Provider: 07/08/18 10:47 Source: patient and old records reviewed Mode of arrival: ambulatory Limitations: no limitations History of Present Illness HPI Narrative: Related Data Home Medications Medication Instructions Recorded Confirmed No Known Home Medications 07/08/18 07/08/18 Allergies Allergy/AdvReac Type Severity Reaction Status Date / Time No Known Drug Allergies Allergy Verified 07/03/18 18:20 <Giovanna Traylor DO - Last Filed: 07/08/18 12:27> General Source: patient Mode of arrival: ambulatory Limitations: no limitations History of Present Illness HPI Narrative: This is a 57-year-old male who comes to the emergency department with complaint of swelling in his lower extremities. Patient states has been going on for quite a while states that he has been checked out a couple times but is concerned about blood clots. He has some pain which he complains of in the dorsum of the foot just behind the toes. States he does have some mild discomfort with palpation of the legs. Patient states he has a prior family history. Patient states he has swelling in both lower extremities but worse on the left. Does not sound to be like an acute change but more of a slow change. Patient is denying any chest, no shortness of breath, no syncope, no nausea no vomiting no diarrhea, constipation or other urinary issues. Patient has sort of a tangential thought pattern, he continually refers to relationship with a woman from 2007. He did show me her picture as well as some text messages between them. He does have a history of bipolar. He was accompanied here by his brother. Patient lives on [facility]. Patient does not have any suicidal, homicidal ideation or intent. Review of Systems <Owen London MD - Last Filed: 07/27/18 02:26> Review of Systems ROS Unobtainable: All systems reviewed & are unremarkable except as noted in HPI and below Constitutional Denies chills, Denies fatigue, Denies fever(s) and Denies lethargy Cardiovascular Denies chest pain, Denies irregular heart rhythm, Reports leg edema, Denies lightheadedness, Denies palpitations, Denies dyspnea, Denies dyspnea on exertion and Denies orthopnea Respiratory Denies chest congestion, Denies cough, Denies hemoptysis, Denies excessive phlegm production, Denies dyspnea, Denies dyspnea on exertion and Denies wheezing Gastrointestinal Gastrointestinal: Denies abdominal pain, Denies change in bowel habits, Denies diarrhea, Denies nausea and Denies vomiting Genitourinary Denies hematuria, Denies flank pain and Denies urinary urgency Musculoskeletal Reports other (pain in feet) Endocrine Denies fatigue and Denies palpitations Allergic/Immunologic Denies wheezing <Giovanna Traylor DO - Last Filed: 07/08/18 12:27> Review of Systems ROS Unobtainable: All systems reviewed & are unremarkable except as noted in HPI and below Constitutional Denies chills, Denies fever(s), Denies lethargy and Denies weakness Cardiovascular Denies chest pain, Denies chest pain at rest, Denies chest pain with activity, Denies syncope, Denies irregular heart rhythm, Reports leg edema, Denies lightheadedness, Denies palpitations, Denies dyspnea, Denies dyspnea on exertion and Denies orthopnea Respiratory Denies change in phlegm color, Denies chest congestion, Denies cough, Denies pain on inspiration, Denies pain with cough, Denies dyspnea and Denies dyspnea on exertion Gastrointestinal Gastrointestinal: Denies abdominal pain, Denies change in bowel habits, Denies diarrhea, Denies nausea and Denies vomiting Genitourinary Denies hematuria, Denies flank pain and Denies urinary urgency Musculoskeletal Reports other (pain in feet) Neurologic Denies syncope and Denies weakness Psychiatric Denies homicidal ideation and Denies suicidal ideation Endocrine Denies palpitations PFSH <Owen London MD - Last Filed: 07/27/18 02:26> Medical History Bipolar 1 disorder with moderate jeffrey (Acute) Edema (Acute) No chronic diseases present (Acute) Patient denies medical problems (Acute) Social History Smoking Status: Never smoker Exam <Owen London MD - Last Filed: 07/27/18 02:26> Narrative Exam Narrative: Initial Vital Signs Initial Vital Signs: Vital Signs Temperature 98.1 F 07/08/18 10:33 Pulse Rate 72 07/08/18 10:33 Respiratory Rate 16 07/08/18 10:33 Blood Pressure 147/65 H 07/08/18 10:33 Pulse Oximetry 99 07/08/18 10:33 <Giovanna Traylor DO - Last Filed: 07/08/18 12:27> Narrative Exam Narrative: GENERAL: Alert and oriented x three, Male in mild distress. HEENT: Head normocephalic, atraumatic, EOMI, pupils reactive, face symmetric, moist mucous membranes NECK: Supple, full range of motion CARDIOVASCULAR: Regular rate and rhythm without murmurs, rubs or gallops. RESPIRATORY: Breath sounds equal bilaterally, no wheezes rales or rhonchi. ABDOMEN: Soft, nontender. Normoactive bowel sounds all 4 quadrants. No guarding or rebound, rigidity, no mass : No CVA tenderness EXTREMITIES: Normal range of motion, no clubbing. Patient has bilateral lower extremity edema 1+. Very mild increase in left versus right. There is no skin breakdown there is some very mild erythema / hyperpigmentation. Patient has palpable pulses bilaterally.. Neurovascularly intact NEUROLOGICAL: Cranial nerves II through XII grossly intact. Moving all extremities SKIN: Warm, dry, no petechiae, no rashes or lesions. Initial Vital Signs Initial Vital Signs: Vital Signs Temperature 98.1 F 07/08/18 10:33 Pulse Rate 72 07/08/18 10:33 Respiratory Rate 16 07/08/18 10:33 Blood Pressure 147/65 H 07/08/18 10:33 Pulse Oximetry 99 07/08/18 10:33 Course <Owen London MD - Last Filed: 07/27/18 02:26> Orders Ordered: ED Orders 07/08/18 10:45 Urine Drug Screen, Rapid Stat 07/08/18 11:04 US periph venous low extrem bi Stat XR chest 1V Stat EKG-12 Lead Stat 07/08/18 11:19 B Type Natriuretic Peptide Stat Complete Blood Count AUTO DIFF Stat Comprehensive Metabolic Panel Stat Lipase Stat Troponin & CK Cardiac Panel Stat Vital Signs - 8 hr 07/08/18 10:33 07/08/18 10:58 07/08/18 11:23 Temperature 98.1 F Pulse Rate 72 72 Pulse Rate [Bilateral Dorsalis Pedis] 74 Respiratory Rate 16 14 Blood Pressure 147/65 H Blood Pressure [Left Arm] 137/76 Pulse Oximetry 99 99 07/08/18 12:09 Temperature Pulse Rate 78 Pulse Rate [Bilateral Dorsalis Pedis] Respiratory Rate 18 Blood Pressure Blood Pressure [Left Arm] 142/88 H Pulse Oximetry 98 <Giovanna Traylor DO - Last Filed: 07/08/18 12:27> Orders Ordered: ED Orders 07/08/18 10:45 Urine Drug Screen, Rapid Stat 07/08/18 11:04 US periph venous low extrem bi Stat XR chest 1V Stat EKG-12 Lead Stat 07/08/18 11:19 B Type Natriuretic Peptide Stat Complete Blood Count AUTO DIFF Stat Comprehensive Metabolic Panel Stat Lipase Stat Troponin & CK Cardiac Panel Stat Vital Signs - 8 hr 07/08/18 10:33 07/08/18 10:58 07/08/18 11:23 Temperature 98.1 F Pulse Rate 72 72 Pulse Rate [Bilateral Dorsalis Pedis] 74 Respiratory Rate 16 14 Blood Pressure 147/65 H Blood Pressure [Left Arm] 137/76 Pulse Oximetry 99 99 07/08/18 12:09 Temperature Pulse Rate 78 Pulse Rate [Bilateral Dorsalis Pedis] Respiratory Rate 18 Blood Pressure Blood Pressure [Left Arm] 142/88 H Pulse Oximetry 98 MDM - Extremity (Nontraumatic) <Owen London MD - Last Filed: 07/27/18 02:26> Lab Data Result diagrams: 07/08/18 11:19 07/08/18 11:19 Lab Results 07/08/18 07/08/18 07/08/18 Range/Units 10:45 11:19 11:19 WBC 6.7 (4.5-11.0) X10^3/uL RBC 4.62 (4.5-5.9) X10^6/uL Hgb 14.1 (13.5-17.5) g/dL Hct 41.9 (41-53) % MCV 90.8 (80-100) fL MCH 30.4 (26-34) PG MCHC 33.5 (30-36) % RDW 13.2 (11.6-14.8) % Plt Count 198 (150-400) X10^3/uL Neut % (Auto) 74.6 (50-75) % Lymph % (Auto) 18.8 L (25-40) % [place] % (Auto) 5.4 (3-14) % Eos % (Auto) 0.6 L (2-4) % Baso % (Auto) 0.6 (0-2) % Neut # (Auto) 5000 (4087-5085) /uL Lymph # (Auto) 1300 (6797-5986) /uL [place] # (Auto) 400 (0-900) /uL Eos # (Auto) 0 (0-450) /uL Baso # (Auto) 0 (0-100) /uL Sodium 138 (137-145) mmol/L Potassium 3.8 (3.4-5.1) mmol/L Chloride 103 (98-107) mmol/L Carbon Dioxide 28 (22-32) mmol/L BUN 22 H (9-20) mg/dL Creatinine 0.90 (0.66-1.25) mg/dL Estimated GFR > 60.0 (>60) mL/min BUN/Creatinine Ratio 24.4 H (6-22) Glucose 116 H (70-100) mg/dL Calcium 8.8 (8.4-10.2) mg/dL Total Bilirubin 0.8 (0.2-1.3) mg/dL AST 30 (17-59) IU/L ALT 46 (21-72) IU/L Alkaline Phosphatase 58 (38-126) U/L Total Creatine Kinase 188 H (55-170) U/L CK-MB (CK-2) 3.69 H (<2.37) ng/mL CK-MB (CK-2) Rel Index 2.0 (1.5-5.0) % Troponin I < 0.012 (0.01-0.034) ng/mL B-Natriuretic Peptide < 100 (<100) Total Protein 6.5 (6.3-8.2) g/dL Albumin 3.7 (3.5-5.0) g/dL Globulin 2.8 (1.7-4.1) g/dL Albumin/Globulin Ratio 1.3 (1.0-2.8) Lipase 81 (23-300) U/L Urine Opiates Screen Negative (Negative) Ur Oxycodone Screen Negative (Negative) Urine Methadone Screen Negative (Negative) Ur Barbiturates Screen Negative (Negative) U Tricyclic Antidepress Negative (Negative) Ur Phencyclidine Scrn Negative (Negative) Ur Amphetamines Screen Negative (Negative) U Methamphetamines Scrn Negative (Negative) Ur MDMA Scrn (Ecstasy) Negative (Negative) U Benzodiazepines Scrn Negative (Negative) Urine Cocaine Screen Negative (Negative) U Marijuana (THC) Screen Negative (Negative) Urine Dip Bedside Urine Glucose Negative Bedside Urine Bilirubin - Negative Bedside Urine Ketone - Negative Urine Specific [place] 1.015 Bedside Urine Occult Blood - Negative Bedside Urine pH 7.0 Bedside Urine Protein - Negative Bedside Urine Urobilinogen - Negative Bedside Urine Nitrite - Negative Bedside Urine Leukocytes - Negative Esterase <Giovanna Traylor, DO - Last Filed: 07/08/18 12:27> Lab Data Attestation: I reviewed the patient's lab results. Lab Results 07/08/18 07/08/18 07/08/18 Range/Units 10:45 11:19 11:19 WBC 6.7 (4.5-11.0) X10^3/uL RBC 4.62 (4.5-5.9) X10^6/uL Hgb 14.1 (13.5-17.5) g/dL Hct 41.9 (41-53) % MCV 90.8 (80-100) fL MCH 30.4 (26-34) PG MCHC 33.5 (30-36) % RDW 13.2 (11.6-14.8) % Plt Count 198 (150-400) X10^3/uL Neut % (Auto) 74.6 (50-75) % Lymph % (Auto) 18.8 L (25-40) % [place] % (Auto) 5.4 (3-14) % Eos % (Auto) 0.6 L (2-4) % Baso % (Auto) 0.6 (0-2) % Neut # (Auto) 5000 (4888-5738) /uL Lymph # (Auto) 1300 (1456-7240) /uL [place] # (Auto) 400 (0-900) /uL Eos # (Auto) 0 (0-450) /uL Baso # (Auto) 0 (0-100) /uL Sodium 138 (137-145) mmol/L Potassium 3.8 (3.4-5.1) mmol/L Chloride 103 (98-107) mmol/L Carbon Dioxide 28 (22-32) mmol/L BUN 22 H (9-20) mg/dL Creatinine 0.90 (0.66-1.25) mg/dL Estimated GFR > 60.0 (>60) mL/min BUN/Creatinine Ratio 24.4 H (6-22) Glucose 116 H (70-100) mg/dL Calcium 8.8 (8.4-10.2) mg/dL Total Bilirubin 0.8 (0.2-1.3) mg/dL AST 30 (17-59) IU/L ALT 46 (21-72) IU/L Alkaline Phosphatase 58 (38-126) U/L Total Creatine Kinase 188 H (55-170) U/L CK-MB (CK-2) 3.69 H (<2.37) ng/mL CK-MB (CK-2) Rel Index 2.0 (1.5-5.0) % Troponin I < 0.012 (0.01-0.034) ng/mL B-Natriuretic Peptide < 100 (<100) Total Protein 6.5 (6.3-8.2) g/dL Albumin 3.7 (3.5-5.0) g/dL Globulin 2.8 (1.7-4.1) g/dL Albumin/Globulin Ratio 1.3 (1.0-2.8) Lipase 81 (23-300) U/L Urine Opiates Screen Negative (Negative) Ur Oxycodone Screen Negative (Negative) Urine Methadone Screen Negative (Negative) Ur Barbiturates Screen Negative (Negative) U Tricyclic Antidepress Negative (Negative) Ur Phencyclidine Scrn Negative (Negative) Ur Amphetamines Screen Negative (Negative) U Methamphetamines Scrn Negative (Negative) Ur MDMA Scrn (Ecstasy) Negative (Negative) U Benzodiazepines Scrn Negative (Negative) Urine Cocaine Screen Negative (Negative) U Marijuana (THC) Screen Negative (Negative) Urine Dip Bedside Urine Glucose Negative Bedside Urine Bilirubin - Negative Bedside Urine Ketone - Negative Urine Specific [place] 1.015 Bedside Urine Occult Blood - Negative Bedside Urine pH 7.0 Bedside Urine Protein - Negative Bedside Urine Urobilinogen - Negative Bedside Urine Nitrite - Negative Bedside Urine Leukocytes - Negative Esterase ECG Data Attestation EKG: I personally reviewed and interpreted this ECG as follows: Prior ECG tracings: available for review Interpretation: Sinus rhythm with a rate of 71 a CA interval of 161 a QRS of 92 and QTC of 410. No ST elevation or depression. Patient has a prior EKG that appears similar from 06/22/2018. MDM Narrative Medical decision making narrative: Patient was seen here on the but left prior to having any of his lab work back today had EKG, chest x-ray as well as lab work which did not show any major changes. Possibly some interstitial d isease. Patient's ultrasound does not show any blood clot in his lower extremities. We did discuss compression stockings which he states he is not a big fan but would look into. We also discussed that he could potentially be on a diuretic but I would prescribed at this time as he does not have any kind of follow-up with primary care. Was given some options for primary care. Patient also requested to talk with the supervisor pipeline. He is denying any suicidal or homicidal ideation or intent. We did contact the supervisor pipeline but he wanted to walk about so he is ambulating in the waiting area of the emergency department but states that he might leave. We did let him know that the supervisor pipeline is coming. He seems to be in good spirits at this time and is headed to the cafeteria to get lunch. Discharge Plan Departure Patient Disposition: Home Clinical Impression: Bilateral edema of lower extremity Discharge Date/Time: 07/08/18 12:24 Interventions: ED Discharge Assessment Last Done: 07/08/18 12:18 Instructions: DI for Peripheral Edema -- Bilateral Activity Restrictions/Additional Instructions: Follow-up with your physician for recheck and discussion about whether a diuretic would be helpful for the swelling in your lower extremities I would recommend wearing compression socks or hose regularly to help with swelling in your lower extremities. These can be obtained [id number] at pharmacies or medical supplies doors. Return to the emergency department for fevers, signs of infection in your lower extremities, breakdown of the skin, rapidly worsening pain, new weakness, numbness, chest pain, shortness of breath or other new or concerning symptoms. Prescriptions: No Action No Known Home Medications RF: 0 Referrals: [facility] [Provider Group] [facility] [Provider Group] [facility] [Provider Group] [facility] [Provider Group]
[2018-07-08 11:23] VITALS: PULSE 74
[2018-07-08 11:29] LABS: Add Manual Diff / Slide Review NO; Basophils Absolute Auto 0 /uL (0-100); Basophils Percent Auto 0.6 % (0-2); Eosinophils Absolute Auto 0 /uL (0-450); Eosinophils Percent Auto 0.6 % (2-4); Hematocrit 41.9 % (41-53); Hemoglobin 14.1 g/dL (13.5-17.5); Lymphocytes Absolute Auto 1300 /uL (1100-4500); Lymphocytes Percent Auto 18.8 % (25-40); Mean Corpuscular HGB Conc 33.5 % (30-36); Mean Corpuscular Hemoglobin 30.4 PG (26-34); Mean Corpuscular Volume 90.8 fL (80-100); Monocytes Absolute Auto 400 /uL (0-900); Monocytes Percent Auto 5.4 % (3-14); Neutrophils Absolute Auto 5000 /uL (1500-7000); Neutrophils Percent Auto 74.6 % (50-75); Platelet Count 198 X10^3/uL (150-400); Red Blood Cell Count 4.62 X10^6/uL (4.5-5.9); Red Cell Distribution Width 13.2 % (11.6-14.8); White Blood Cell Count 6.7 X10^3/uL (4.5-11.0)
[2018-07-08 11:32] LABS: Urine Amphetamines Negative (Negative); Urine Barbiturates Negative (Negative); Urine Benzodiazepines Negative (Negative); Urine Cocaine Negative (Negative); Urine MDMA Negative (Negative); Urine Methadone Negative (Negative); Urine Methamphetamines Negative (Negative); Urine Morphine/Opi cutoff 2000 Negative (Negative); Urine Oxycodone Negative (Negative); Urine Phencyclidine Negative (Negative); Urine Tetrahydrocannabinol Negative (Negative); Urine Tricyclic Antidepressant Negative (Negative)
[2018-07-08 11:41] LABS: Alanine Aminotransferase 46 IU/L (21-72); Albumin 3.7 g/dL (3.5-5.0); Albumin Globulin Ratio 1.3 (1.0-2.8); Alkaline Phosphatase 58 U/L (38-126); Aspartate Aminotransferase 30 IU/L (17-59); BUN Creatinine Ratio 24.4 (6-22); Bilirubin Total 0.8 mg/dL (0.2-1.3); Blood Urea Nitrogen 22 mg/dL (9-20); Calcium 8.8 mg/dL (8.4-10.2); Carbon Dioxide 28 mmol/L (22-32); Chloride 103 mmol/L (98-107); Creatine Kinase 188 U/L (55-170); Estimated Glomerular Filt Rate > 60.0 mL/min (>60); Globulin 2.8 g/dL (1.7-4.1); Glucose 116 mg/dL (70-100); HEMOLYSIS < 15 (0-50); Lipase 81 U/L (23-300); Potassium 3.8 mmol/L (3.4-5.1); Sodium 138 mmol/L (137-145); Total Protein 6.5 g/dL (6.3-8.2)
[2018-07-08 11:55] LABS: B Type Natriuretic Peptide < 100 (<100)
[2018-07-08 11:56] LABS: Creatine Kinase MB 3.69 ng/mL (<2.37)
[2018-07-08 11:57] LABS: Troponin I < 0.012 ng/mL (0.01-0.034)
--- NOTE | 2018-07-08 12:07 | PC.NURSE ---
Pt wanting to walk to make my legs feel better. Refused to stay in room in ED, explained HIPPA / Confidentiality. Pt dressed and walking in hallway outside of ED, awaiting results. Denies complaints at this time.
[2018-07-08 12:09] VITALS: BP 142/88; PULSE 78; RESP 18; O2SAT 98
--- NOTE | 2018-07-08 13:36 | PC.NURSE ---
Pt waiting for pastoral counseling however appears to be disruptive to hospital visitors. Redirected to ED waiting area. Pastoral counselor not here yet, called [employer] for assist. Pt continues to be pleasant, not violent, denies SI/HI. [facility]ton will see Pt. Pt verbalized understanding.
== END 2018-07-08 12:24 | disposition home or self-care (01) ==
PROVIDERS: Emergency Provider Emergency Medicine
DX: R60.0 Localized edema (principal)
CPT/HCPCS: 36415; 71045; 80053; 80305; 81003; 82550; 82553; 83690; 83880; 84484; 85025; 93005; 93970; 99282; 99285